=== PATIENT | female | born 1975 | race African-American/Black ===

== ENCOUNTER 2022-11-13 23:32 | Emergency (ER) | payer OTHER ==
[~2022-11-13] VITALS: Ht 162.6 cm; Wt 71.6 kg
[2022-11-13 23:37] VITALS: BP 142/101
[2022-11-14] MEDS ORDERED: TETANUS, DIPHTHERIA, PERTUSSIS VAC/PF 0.5ML (>10YR OLD) IM ONE (00:15)
[2022-11-14] MEDS ORDERED: LIDOCAINE HCL/EPINEPHRINE 1%-EPI 1:100,000 50 ML VIAL INFIL ONE (00:15)
[2022-11-14] MEDS ORDERED: LIDOCAINE HCL/EPINEPHRINE 1%-EPI 1:100,000 30 ML VIAL INFIL NR (00:30)
== END 2022-11-14 01:25 | disposition home or self-care (01) ==
LOC: ER 23:46
DX: S71.112A Laceration without foreign body, left thigh, initial encounter (principal); S00.212A Abrasion of left eyelid and periocular area, initial encounter; S80.811A Abrasion, right lower leg, initial encounter; T14.8XXA Other injury of unspecified body region, initial encounter; F10.10 Alcohol abuse, uncomplicated; Y90.9 Presence of alcohol in blood, level not specified; W01.110A Fall on same level from slipping, tripping and stumbling with subsequent striking against sharp glass, initial encounter; Y93.89 Activity, other specified; Y92.520 Airport as the place of occurrence of the external cause; Y99.8 Other external cause status
CPT/HCPCS: 12004; 81025; 90471; 90715; 99283